=== PATIENT | female | born 1975 | race Caucasian/White ===

== ENCOUNTER 2022-10-05 08:39 | Emergency (ER) | payer MEDICAID ==
[~2022-10-05] VITALS: Ht 162.6 cm; Wt 70.5 kg
[2022-10-05 08:50] VITALS: BP 179/65
[2022-10-05] MEDS ORDERED: ketorolac trometh inj. 60 MG/2 ML VIAL IM ONE (10:25)
[2022-10-05] MEDS ORDERED: NAPR-56 PO (10:37)
[2022-10-05] MEDS ORDERED: GABA300C PO (10:37)
[2022-10-05] MEDS ORDERED: LIDO700A32 TOP (10:37)
== END 2022-10-05 10:54 | disposition home or self-care (01) ==
LOC: ER 08:39
DX: M54.42 Lumbago with sciatica, left side (principal); R20.0 Anesthesia of skin
CPT/HCPCS: 96372; 99283; J1885